=== PATIENT | male | born 1935 | race Caucasian/White ===

== ENCOUNTER 2017-03-14 13:04 | Emergency (ER) | payer OTHER ==
--- NOTE | ~2017-03-14 | EKG ---
PATIENT: MELISSA CABRAL UNIT #: [id number] Ventricular Rate: 68 BPM Atrial Rate: 68 BPM P-R Interval: 200 ms QRS Duration: 88 ms Q-T Interval: 406 ms QTC Calculation(Bezet): 431 ms P Schaller: 14 degrees Calculated R Schaller: -21 degrees Calculated T Schaller: 1 degrees Diagnosis Line: Normal sinus rhythm Diagnosis Line: Normal ECG Diagnosis Line: No previous ECGs available Diagnosis Line: Confirmed by BECKY OLVERA MD ([id number]) on Diagnosis Line: 03/15/2017 10:39:55 AM INTERPRETING MD: WADE PARKER
--- NOTE | ~2017-03-14 | CR151 ---
[facility] A Service of [facility] & [facility] RADIOLOGY TEXT RESULTS PATIENT: MELISSA CABRAL LOCATION: [facility] : 37 UNIT #: [id number] AGE: [address]: Jermaine Ken MD SEX: M ORDER DR: [id number] [facility] [address] [place], [place] [address] [id number] E MR#: [id number] Acc #: [id number] NAME: MELISSA CABRAL. : 1935 SEX: M STUDY DATE/TIME: 03/14/2017 14:51 UNIT: [facility] ROOM: STUDY DESCRIPTION: CR Hip Min 2 Views Rt Attending Physician: Jermaine Ken M.D. Ordering Physician: [facility] MEDICAL IMAGING REPORT This report is preliminary unless electronic signature is present EXAM Right hip HISTORY Right hip pain after falling 5 days ago. TECHNIQUE 2 views the right hip were obtained. FINDINGS There is moderate joint space narrowing at the right hip. There is no evidence of fracture, bone destruction or osteophyte formation. No osteochondral fragments are seen. IMPRESSION Joint space narrowing at the right hip. No acute bony abnormalities are seen. Dictated by... Jermaine Sanford M.D. THIS IS AN ELECTRONICALLY VERIFIED REPORT Jermaine Sanford M.D. at 03/15/2017 7:30 AM RLF/pcl TD: 03/14/2017 16:50 JOB #: [id number] MEDICAL IMAGING REPORT Page 1 of 1 COPY
--- NOTE | ~2017-03-14 | CR173 ---
[facility] A Service of [facility] & [facility] RADIOLOGY TEXT RESULTS PATIENT: MELISSA CABRAL LOCATION: [facility] : 37 UNIT #: [id number] AGE: [address]: Jermaine Ken MD SEX: M ORDER DR: [id number] [facility] [address] [place], [place] [address] [id number] E MR#: [id number] Acc #: [id number] NAME: MELISSA CABRAL. : 1935 SEX: M STUDY DATE/TIME: 03/14/2017 14:46 UNIT: [facility] ROOM: STUDY DESCRIPTION: CR Knee 3 Views Rt Attending Physician: Jermaine Ken M.D. Ordering Physician: Santo Quevedo M.D. Primary Care Physician: No Primary Care Physician MEDICAL IMAGING REPORT This report is preliminary unless electronic signature is present EXAM Right knee. HISTORY Knee pain, trauma 5 days ago. Persistent pain in the right knee. TECHNIQUE Three views of the right knee were obtained. FINDINGS Knee prosthesis is seen. Multiple bone fragments are seen at the patellar side with multiple broken wire fragments. There is a small joint effusion. There is no evidence of prosthesis loosening. No acute fractures are seen. IMPRESSION Postoperative changes at the knee. Small effusion. No evidence of prosthesis complication or acute fracture. Dictated by... Jermaine Sanford M.D. THIS IS AN ELECTRONICALLY VERIFIED REPORT Jermaine Sanford M.D. at 03/15/2017 7:30 AM MALAF/suzi TD: 03/14/2017 16:47 JOB #: [id number] MEDICAL IMAGING REPORT Page 1 of 1 COPY
--- NOTE | ~2017-03-14 | CR21 ---
[facility] A Service of [facility] & [facility] RADIOLOGY TEXT RESULTS PATIENT: MELISSA CABRAL LOCATION: [facility] : 37 UNIT #: [id number] AGE: [address]: Jermaine Ken MD SEX: M ORDER DR: [id number] [facility] [address] [place], [place] [address] [id number] E MR#: [id number] Acc #: [id number] NAME: MELISSA CABRAL. : 1935 SEX: M STUDY DATE/TIME: 03/14/2017 14:44 UNIT: [facility] ROOM: STUDY DESCRIPTION: CR Ankle Min 3 Views Rt Attending Physician: Jermaine Ken M.D. Ordering Physician: [facility] MEDICAL IMAGING REPORT This report is preliminary unless electronic signature is present EXAM Right ankle HISTORY Patient fell 5 days ago. Right ankle pain since. TECHNIQUE 3 views of the right ankle were obtained. FINDINGS Postoperative changes of ankle and forefoot arthrodesis are noted. The ankle mortise is symmetric. There are advanced degenerative changes at the ankle joint with osteophytes and joint space narrowing. No acute fractures are seen. 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 No acute bony abnormalities are seen. Dictated by... Jermaine Sanford M.D. THIS IS AN ELECTRONICALLY VERIFIED REPORT Jermaine Sanford M.D. at 03/15/2017 7:30 AM RLF/pcl TD: 03/14/2017 16:45 JOB #: [id number] MEDICAL IMAGING REPORT Page 1 of 1 COPY
[2017-03-14 16:51] LABS: BASOPHIL# 0.1 X10e3 (0-0.3); BASOPHIL% 0.5 % (0-2.5); EOSINOPHIL# 0.5 X10e3 (0-0.7); EOSINOPHIL% 4.5 % (0.0-7.0); HEMATOCRIT 37.8 % (38.0-50.0); HEMOGLOBIN 12.4 gm/dL (13.0-16.0); LYMPHOCYTE# 1.3 X10e3 (1.0-3.5); LYMPHOCYTE% 12.6 % (17.0-45.0); MEAN CELL VOLUME 96.4 FL (83-96); MEAN CORPUSCULAR HEMOGLOBIN 31.6 PG (28-34); MEAN CORPUSCULAR HGB CONC 32.8 g/dL (30-36); MEAN PLATELET VOLUME 9.3 FL (6.5-11.5); MONOCYTE# 1.1 X10e3 (0-1.0); MONOCYTE% 10.4 % (3.0-12.0); NEUTROPHIL# 7.6 X10e3 (1.5-7.1); PLATELET COUNT 290 X10e3 (140-420); RED BLOOD COUNT 3.93 X10e (3.90-5.60); RED CELL DISTRIBUTION WIDTH 13.2 % (11.0-15.5); WHITE BLOOD COUNT 10.5 X10e3 (4.0-10.5)
[2017-03-14 16:55] LABS: DIFF IND NO
[2017-03-14 17:05] LABS: BUN/CREATININE RATIO 21.53; CALCIUM SERUM 9.9 mg/dL (8.4-10.2); CREATININE SERUM 1.3 mg/dL (0.6-1.4); GLOM FILT RATE Estimated 51.9 mL/min (>60); POTASSIUM 4.8 mmol/L (3.5-5.1)
== END 2017-03-15 00:50 | disposition home or self-care (01) ==
LOC: CED 13:04
PROVIDERS: Emergency Medicine
DX: S70.01XA Contusion of right hip, initial encounter (principal); M25.561 Pain in right knee; W19.XXXA Unspecified fall, initial encounter; Y92.009 Unspecified place in unspecified non-institutional (private) residence as the place of occurrence of the external cause
CPT/HCPCS: 36415; 73502; 73562; 73610; 80048; 85025; 93005; 99284